=== PATIENT | male | born 1975 | race Caucasian/White ===

== ENCOUNTER 2018-08-14 14:13 | Emergency (ER) | payer OTHER ==
[~2018-08-14] VITALS: Ht 188 cm; Wt 113.4 kg
== END 2018-08-14 20:00 | disposition home or self-care (01) ==
LOC: ER 14:13
DX: S91.111A Laceration without foreign body of right great toe without damage to nail, initial encounter (principal); W45.8XXA Other foreign body or object entering through skin, initial encounter; Y93.89 Activity, other specified; Y92.89 Other specified places as the place of occurrence of the external cause; Y99.8 Other external cause status

== ENCOUNTER 2018-08-22 10:03 | Emergency (ER) | payer OTHER ==
[~2018-08-22] VITALS: Ht 190.5 cm; Wt 117.9 kg
== END 2018-08-22 14:02 | disposition home or self-care (01) ==
LOC: ER 10:03
DX: Z48.02 Encounter for removal of sutures (principal)